=== PATIENT | female | born 1945 | race Caucasian/White ===

== ENCOUNTER → 2019-07-05 | Outpatient (CLI) | payer MEDICARE ==
--- NOTE | 2019-07-05 12:32 | PCVCIMAG ---
APPROVED REPORT Study performed: 07/05/2019 11:15:06 EXAM: Comprehensive 2D, Doppler, and color-flow Echocardiogram Patient Location: Echo lab Status: routine BSA: 1.89 HR: 63 bpmBP: 130/86 mmHg Rhythm: NSR Other Information Study Quality: Adequate Indications Abnormal ECG Murmur Dyspnea Palpitations Chest Pain 2D Dimensions IVSd: 14.97 (7-11mm)LVOT Diam: 21.47 (18-24mm) LVDd: 30.19 mm PWd: 14.34 (7-11mm)Ascending Ao: 33.17 (22-36mm) LVDs: 20.05 (25-40mm) Left Atrium: 41.81 (27-40mm) Aortic Root: 30.70 mm LV Single Plane 4CH: 51.58 % LV Single Plane 2CH: 60.78 % Biplane EF: 57.2 % Volumes Left Atrial Volume (Systole) Single Plane 4CH: 64.15 mLSingle Plane 2CH: 39.25 mL LA ESV Index: 27.00 mL/m2 Aortic Valve AoV Peak Rafita.: 2.98 m/s AO Peak Gr.: 35.49 mmHgLVOT Max P.87 mmHg AO Mean Gr.: 17.13 mmHgLVOT Mean P.40 mmHg AO V2 Mean: 1.86 m/sLVOT Max V: 1.24 m/s AO V2 VTI: 69.55 cmLVOT Mean V: 0.88 m/s AMY (VTI): 1.34 [id number] V1 VTI: 25.76 cm AMY Vmax: 1.50 cm2 SV (LVOT): 93.24 mL Mitral Valve E/A Ratio: 0.6 MV Decel. Time: 328.92 ms MV E Max Rafita.: 0.69 m/s MV A Rafita.: 1.16 m/s IVRT: 148.79 ms Pulmonary Valve PV Peak Rafita.: 1.22 m/sPV Peak Gr.: 5.93 mmHg Pulmonary Vein P Vein S: 0.19 m/sP Vein A: 0.44 m/s P Vein D: 0.31 m/sP Vein A Dur.: 131.5 msec P Vein S/D Ratio: 0.61 Tricuspid Valve TR Peak Rafita.: 2.39 m/s TR Peak Gr.: 22.79 mmHg Left Ventricle The left ventricle is normal size. There is normal LV segmental wall motion. Moderate concentric left ventricular hypertrophy. Left ventricular systolic function is normal. The left ventricular ejection fraction is within the normal range. LVEF is 50-55%. Grade I - abnormal relaxation pattern. Right Ventricle The right ventricle is normal size. The right ventricular systolic function is normal. Atria Left atrium is at the upper limits of normal. The right atrium size is normal. Aortic Valve The aortic valve is mildly sclerotic. Trace aortic regurgitation. There is mild valvular aortic stenosis. Calculated aortic valve area is 1.5 cm2 with maximum pressure gradient of 35 mmHg and mean pressure gradient of 17 mmHg. Mitral Valve Mild mitral annular calcification. There is no mitral valve regurgitation noted. No evidence of mitral valve stenosis. Tricuspid Valve The tricuspid valve is normal in structure. Mild tricuspid regurgitation with PAP of 30 mmHg. Pulmonic Valve The pulmonary valve is normal in structure. Trace pulmonic regurgitation. Great Vessels The aortic root is normal in size. IVC is normal in size and collapses >50% with inspiration. Pericardium There is no pericardial effusion. There is no pleural effusion. <Conclusion> The left ventricle is normal size. Moderate concentric left ventricular hypertrophy. LVEF is 50-55%. Grade I - abnormal relaxation pattern. The right ventricle is normal size. Left atrium is at the upper limits of normal. The aortic valve is mildly sclerotic. Trace aortic regurgitation. There is mild valvular aortic stenosis. Calculated aortic valve area is 1.5 cm2 with maximum pressure gradient of 35 mmHg and mean pressure gradient of 17 mmHg. Mild mitral annular calcification. There is no mitral valve regurgitation noted. Mild tricuspid regurgitation with PAP of 30 mmHg. Trace pulmonic regurgitation. The aortic root is normal in size. There is no pericardial effusion.
== END | disposition home or self-care (01) ==
LOC: PCVCIMAG 10:39
PROVIDERS: ATTEND Internal Medicine Cardiovascular Disease
DX: I08.3 Combined rheumatic disorders of mitral, aortic and tricuspid valves (principal); I11.9 Hypertensive heart disease without heart failure; R94.31 Abnormal electrocardiogram [ECG] [EKG]; E78.00 Pure hypercholesterolemia, unspecified; E11.9 Type 2 diabetes mellitus without complications; B02.9 Zoster without complications; R06.02 Shortness of breath; R00.2 Palpitations; R01.1 Cardiac murmur, unspecified; Z87.891 Personal history of nicotine dependence
CPT/HCPCS: 36415; 80061; 93005; 93306; G0463

== ENCOUNTER → 2019-07-13 | Outpatient (CLI) | payer MEDICARE ==
[~2019-07-13] MED LIST: REGADENOSON 0.4 MG/5 ML DISP.SYRIN. IV ONE
--- NOTE | 2019-07-14 10:02 | PCVCIMAG ---
APPROVED REPORT Imaging Protocol: Rest Tc-99m/Stress Tc-99m 1 day Study performed: 07/13/2019 13:34:52 Indication: Abnormal EKG, Chest pain, Palpitations , Dyspnea Patient Location: Out-Patient Stress Nurse: Angeline Arguelles RN, Munira Blanco RN [place] Tech:RAYMOND Stiles Ht: 5 ft 2 in Wt: 195 lbs BSA: 1.89 m2 HR: 72 bpm BP: 139/76 mmHg BMI: 35.6 Rhythm: Sinus Rhythm, T wave abnormalities Medical History Medical History: Hyperlipidemia, HTN, Diabetic Noninsulin, Former Smoker Medications: Lisinopril Allergies: No known drug allergies Cardiac Risk Factors: Age Pretest Chest Pain Characteristics: No chest pain Exercise History: Indeterminate Resting Data Rest SPECT myocardial perfusion imaging was performed in supine position 45 minutes following the intravenous injection of 9.2 mCi of Tc-99m Sestamibi. Time of rest injection: 1345 Date: 07/13/2019 Administration Route: IV Administration Site: Left AC Pharmacologic Stress Pharmacologic stress test was performed by injecting Regadenoson 0.4 mg IV push over 10-15 seconds immediately followed by the intravenous injection of 32.1 mCi of Tc-99m Sestamibi. Time of stress injection: 1500 Date: 07/13/2019 Administration Route: IV Administration Site: Left AC Gated Stress SPECT was performed 45 minutes after stress injection. The images were gated to evaluate regional wall motion and calculate left ventricular ejection fraction. Stress Test Details Stress Test: Pharmacologic stress was paired with low level exercise. Reason for pharmacologic stress test: physical limitation. HRMax Heart Rate (APMHR): 147 bpm Resting HR: 72 bpmTarget HR (85% APMHR): 124 bpm Max HR Achieved: 131 bpm % of APMHR: 89 Recovery HR: 81 bpm BP Resting BP: 139/76 mmHg Max BP: 161/72 mmHg Recovery BP: 162/77 mmHg ECG Resting ECG: Sinus Rhythm, T wave abnormalities Stress ECG: Sinus Tachycardia, Intraventricular conduction delay, T wave abnormalities Recovery ECG: Sinus Rhythm, Intraventricular conduction delay, T wave abnormalities Clinical Reason for Termination: Completed protocol Stress Symptoms: Dyspnea Exercise duration: 4 min 00 sec Symptoms resolved with caffeine. Stress ECG Conclusion ECG: Non-ischemic Study Quality Study: Good Study Data Post stress, the left ventricular ejection was 68%.. SSS: 6 SRS: 5 SDS: 2 TID = 1.04. Perfusion No evidence of stress induced ischemia or prior myocardial infarction. Wall Motion Normal left ventricular size and function with no regional wall motion abnormalities. Nuclear Conclusion No evidence of stress induced ischemia or prior myocardial infarction. Normal left ventricular size and function with no regional wall motion abnormalities. Post stress, the left ventricular ejection was 68%. No prior study available for comparison. Interpreted by: Mauricio Bronson MD Electronically Approved: 07/13/2019 22:06:55 <Conclusion> ECG: Non-ischemic
== END | disposition home or self-care (01) ==
LOC: PCVCIMAG 13:22 → EDSTATUS 13:43 → PCVCIMAG 13:45
PROVIDERS: ATTEND Internal Medicine Cardiovascular Disease
DX: R94.31 Abnormal electrocardiogram [ECG] [EKG] (principal); R06.00 Dyspnea, unspecified; R01.1 Cardiac murmur, unspecified; R07.89 Other chest pain; R00.2 Palpitations; E11.9 Type 2 diabetes mellitus without complications; E78.00 Pure hypercholesterolemia, unspecified
CPT/HCPCS: 78452; 93017; A9500; J2785